=== PATIENT | female | born 1965 | race American Indian/Alaskan Native ===

== ENCOUNTER 2018-02-18 04:53 | Emergency (ER) | payer BC ==
--- NOTE | 2018-02-18 07:47 | Emergency Department Report ---
ED Back Pain/Injury HPI - General Chief Complaint: Back Pain/Injury Stated Complaint: back pain Time Seen by Provider: 02/18/18 07:42 Source: patient, family Mode of arrival: Ambulatory - History of Present Illness Initial Comments: Patient reports that she has a history of back pain from arthritis in her lower back and she is having pain to her left side that started yesterday after she tried to bend over and she thinks she twisted her back. She has had similar pain before in the past. Denies any urinary burning and frequency urgency. Denies any abdominal back pain. Denies any radiation of pain to her extremities. Denies any loss of bowel or bladder function. Pain is 6 out of 10 and achy worsen with walking and better with resting. No medication taken prior to coming to the hospital MD Complaint: back pain Onset/Timin -: days(s) Similar Symptoms Previously: Yes Place: home Radiation: none Severity: moderate Severity scale (0 -10): 6 Quality: aching Consistency: constant Improves With: none Worsens With: walking Context: bending Associated Symptoms: denies: confusion, weakness, chest pain, numbness, difficulty walking, cough, difficulty urinating, diaphoresis, incontinence, fever/chills, constipation, headaches, abdominal pain, loss of appetite, malaise , nausea/vomiting, rash, seizure, shortness of breath, syncope Treatments Prior to Arrival: other (none) - Related Data Previous Rx's Medication Instructions Recorded Last Taken Type Ibuprofen [Motrin] 600 mg PO Q8H PRN #15 tablet 02/18/18 Unknown Rx Allergies Allergy/AdvReac Type Severity Reaction Status Date / Time No Known Allergies Allergy Unverified 02/18/18 08:03 ED Review of Systems ROS: Stated complaint: Other details as noted in HPI Constitutional: denies: chills, fever Eyes: denies: vision change ENT: denies: throat pain, congestion Respiratory: denies: cough, shortness of breath, SOB with exertion, SOB at rest , stridor, wheezing Cardiovascular: denies: chest pain, palpitations, dyspnea on exertion, edema, syncope, paroxysmal nocturnal dyspnea Gastrointestinal: denies: abdominal pain, nausea, vomiting, hematemesis, hematochezia Genitourinary: denies: urgency, dysuria, frequency, hematuria, discharge Musculoskeletal: back pain. denies: joint swelling, arthralgia, myalgia Skin: denies: rash Neurological: denies: headache, numbness, paresthesias, abnormal gait, vertigo ED Past Medical Hx - Past Medical History Chronic back pain Surgical history: no surgical history MEDICAL OFFICE SPECIALIST history: no MEDICAL OFFICE SPECIALIST history LMP comments: none Family history: hypertension ED Back Pain Physical Exam - Exam General: Vital signs noted. No distress. Alert and acting appropriately. This is a 52-year-old female here, well-nourished well-developed in no acute distress. Back/Abdomen: No Abdominal Tenderness, No Perithoracic Tenderness, No Perilumbar Tenderness, No Sacroiliac Tenderness, No Flank Tenderness, No Straight Leg Raise Pain Neuro: Yes Normal Sensation, Yes Motor Weakness, Yes Normal DTR's, Yes Normal Gait ED Course Vital Signs 02/18/18 04:53 Temperature 98.7 F Pulse Rate 68 Respiratory 18 Rate Blood Pressure 112/71 O2 Sat by Pulse 98 Oximetry - Reevaluation(s) Reevaluation #1: 02/18/18 08:43 Patient received Decadron 10 mg IM, Toradol 60 mg IM and [place] 5/325 2 tablets by mouth in the emergency room for back pain. ED Medical Decision Making - Medical Decision Making This is a 52-year-old female here with simple back pain after bending over yesterday to pick something up and thought that she hurt her back. She has had similar incident in the past with a history of chronic back pain from arthritis. Patient was seen and evaluated by myself and physical exam is normal to include back and neurological exam. I discussed the patient that she has acute exacerbation of chronic back pain. I discussed diagnosis and treatment plan and she is in agreement. No need for any diagnostics or laboratory tests then patient does not have any urinary symptoms or abdominal pain and her back pain is chronic. I discussed the patient that she needs to follow up with orthopedic doctor in 2-3 days for her chronic back pain. She was given an Decadron 10 mg IM, Toradol 60 mg IM and [place] 5/325 mg 2 tablets. Emergency room which relieved her pain. Patient discharged home in stable condition with prescription for Motrin. She voiced understanding of need to follow-up. Vital signs are stable and she is afebrile. Critical care attestation.: If time is entered above; I have spent that time in minutes in the direct care of this critically ill patient, excluding procedure time. ED Disposition Clinical Impression: Acute exacerbation of chronic low back pain Disposition: TO HOME OR SELFCARE Is pt being admited?: No Does the pt Need Aspirin: No Condition: Stable Instructions: Chronic Back Pain (ED) Additional Instructions: Please follow up with orthopedic doctor as instructed in 2-3 days Prescriptions: Ibuprofen [Motrin] 600 mg PO Q8H PRN #15 tablet PRN Reason: Pain Referrals: PRIMARY CAREMD [Primary Care Provider] - 2-3 Days PAWAN AUSTIN MD [Staff Physician] - 2-3 Days Forms: Work/School Release Form(ED)
[2018-02-18 08:06] VITALS: BP 112/71
[2018-02-18] MEDS ORDERED: TORADOL IM ONE (08:38)
[2018-02-18] MEDS ORDERED: NORCO 7.5/325 PO ONE (08:38)
[2018-02-18] MEDS ORDERED: DECADRON IM STA (08:38)
== END 2018-02-18 09:06 | disposition home or self-care (01) ==
LOC: ED 04:53
DX: M54.5 Low back pain (principal); G89.29 Other chronic pain
CPT/HCPCS: J1100; J1885